=== PATIENT | male | born 2000 | race Caucasian/White ===

== ENCOUNTER 2022-04-07 09:18 | Outpatient (REF) | payer BC, SELFPAY ==
[2022-04-07 12:48] LABS: ALT 15 U/L (16-63); AST 17 U/L (15-37); Albumin 4.9 g/dL (3.4-5.0); Alkaline Phosphatase 57 U/L (46-116); Anion Gap 8.8 mmol/L (3-11); BUN 13 mg/dL (7-18); Bilirubin, Total 0.7 mg/dL (0.2-1.0); CO2 31.2 mmol/L (21.0-32.0); CREATININE 0.9 mg/dL (0.70-1.30); Calcium 9.5 mg/dL (8.5-10.1); Chloride 103 mmol/L (98-107); Estimated GFR 125.39 (mL/min/1.73m2); Glucose 88 mg/dL (74-106); Potassium 4.4 mmol/L (3.5-5.1); Sodium 143 mmol/L (136-145); Total Protein 7.8 g/dL (6.4-8.2)
== END 2022-04-07 09:19 | disposition home or self-care (01) ==
LOC: LBN 09:18
PROVIDERS: Visit Provider Nurse Practitioner Family
DX: Z00.00 Encounter for general adult medical examination without abnormal findings (principal)
CPT/HCPCS: 80053